=== PATIENT | female | born 1985 | race American Indian/Alaskan Native ===

== ENCOUNTER 2019-03-21 00:40 | Observation (INO) | payer MEDICAID ==
[2019-03-21] MEDS ORDERED: ASPIRIN 325 MG TAB PO ONE (00:46)
[2019-03-21 01:39] LABS: Basophils % (Auto) 0.7 % (0.0-1.8); Eosinophils # (Auto) 0.1 K/mm3 (0.0-0.4); Eosinophils % (Auto) 2.1 % (0.0-4.3); Hematocrit 35.7 % (30.3-42.9); Hemoglobin 12.7 gm/dl (10.1-14.3); Lymphocytes % (Auto) 44.3 % (13.4-35.0); Mean Corpuscular HGB Conc 36 % (30-34); Mean Corpuscular Volume 92 fl (79-97); Monocytes # (Auto) 0.5 K/mm3 (0.0-0.8); Monocytes % (Auto) 7.8 % (0.0-7.3); Platelet Count 375 K/mm3 (140-440); Red Blood Count 3.89 M/mm3 (3.65-5.03); Red Cell Distribution Width 12.6 % (13.2-15.2)
--- NOTE | 2019-03-21 01:44 | XRay Report ---
CHEST 1 VIEW INDICATION / CLINICAL INFORMATION: Chest Pain. COMPARISON: None available. FINDINGS: SUPPORT DEVICES: None. HEART / MEDIASTINUM: No significant abnormality. LUNGS / PLEURA: No significant pulmonary or pleural abnormality. No pneumothorax. ADDITIONAL FINDINGS: No significant additional findings. IMPRESSION: 1. No acute findings. Signer Name: Khalif Joaquin MD Signed: 03/21/2019 1:39 AM Workstation Name: [email or web address]
[2019-03-21 01:54] LABS: BUN/Creatinine Ratio 17; Blood Urea Nitrogen 10 mg/dL (7-17); Calcium 8.9 mg/dL (8.4-10.2); Hemolysis Index 14
--- NOTE | 2019-03-21 02:48 | Emergency Department Report ---
HPI - General Chief Complaint: High BP Time Seen by Provider: 03/21/19 02:35 - HPI HPI: Room 5 The patient is a 33-year-old female presenting with a chief complaint of hypertension and chest pain. The patient states her symptoms began 2 days ago with abdominal pain prompting her to go to [place] emergency department. There the patient had a CT scan of her abdomen and pelvis labs and urinalysis all of which were normal. The patient was found to be hypertensive at that time but no medications were given. The patient states since her discharge from the emergency department she continued to check her blood pressure remained elevated. This evening the patient felt her blood pressure be elevated at 183/113 so she took a lisinopril from an acquaintance. The patient states for the past 2 days she has had constant numbness of bilateral extremities and had an intermittent headache. Patient currently denies headache states today she developed intermittent substernal chest pain this been sharp in nature. Patient denies nausea/vomiting, shortness of breath or diaphoresis. Patient states she's never had a stress test or cardiac catheterization ED Past Medical Hx - Past Medical History Previous Medical History?: Yes Hx Hypertension: Yes (with preg) - Surgical History Past Surgical History?: No - Family History Family history: no significant - Social History Smoking Status: Never Smoker Substance Use Type: None (denies illicit drug use) ED Review of Systems ROS: Stated complaint: HIGH BP/HAND NUMBNESS Other details as noted in HPI Constitutional: denies: diaphoresis Eyes: denies: eye pain ENT: denies: throat pain Respiratory: denies: shortness of breath Cardiovascular: chest pain Endocrine: no symptoms reported Gastrointestinal: denies: nausea, vomiting Genitourinary: denies: dysuria Musculoskeletal: denies: back pain Neurological: headache, paresthesias Physical Exam - Physical Exam Vital Signs: Vital Signs 03/21/19 01:10 Temperature 97.9 F Pulse Rate 75 Respiratory 16 Rate Blood Pressure 189/118 [Right] O2 Sat by Pulse 100 Oximetry Physical Exam: GENERAL: The patient is well-developed well-nourished female lying on stretcher not appearing to be in acute distress. [] HEENT: Normocephalic. Atraumatic. Extraocular motions are intact. Patient has moist mucous membranes. NECK: Supple. No meningitic signs are noted. There is no adenopathy noted. CHEST/LUNGS: Clear to auscultation. There is no respiratory distress noted. HEART/CARDIOVASCULAR: Regular. There is no tachycardia. There is no gallop rub or murmur. ABDOMEN: Abdomen is soft, nontender. Patient has normal bowel sounds. There is no abdominal distention. SKIN: There is no rash. There is no edema. There is no diaphoresis. NEURO: The patient is awake, alert, and oriented. The patient is cooperative. The patient has no focal neurologic deficits. The patient has normal speech MUSCULOSKELETAL: There is no evidence of acute injury. ED Course Vital Signs 03/21/19 01:10 Temperature 97.9 F Pulse Rate 75 Respiratory 16 Rate Blood Pressure 189/118 [Right] O2 Sat by Pulse 100 Oximetry ED Medical Decision Making - Lab Data Result diagrams: 03/21/19 00:53 03/21/19 00:53 - EKG Data -: EKG Interpreted by Al EKG shows normal: sinus rhythm Rate: normal - EKG Data When compared to previous EKG there are: previous EKG unavailable Interpretation: nonspecific ST-T wave melvi (T-wave inversions in leads aVL, V2, V3,) - Radiology Data Radiology results: report reviewed (chest x-ray), image reviewed (chest x-ray) [facility] [address] [place] [address] XRay Report Signed Patient: SHONDA MCNAIR MR# : [id number] : 1985 Acct:[id number] Age/Sex: 33 / F ADM Date: 03/21/19 Loc: ED Attending Dr: Ordering Physician: ED MD MELANIE Date of Service: 03/21/19 Procedure(s): XR chest 1V ap Accession Number(s): [id number] cc: ED MD MELANIE Fluoro Time In Minutes: CHEST 1 VIEW INDICATION / CLINICAL INFORMATION: Chest Pain. COMPARISON: None available. FINDINGS: SUPPORT DEVICES: None. HEART / MEDIASTINUM: No significant abnormality. LUNGS / PLEURA: No significant pulmonary or pleural abnormality. No pneumothorax. ADDITIONAL FINDINGS: No significant additional findings. IMPRESSION: 1. No acute findings. Signer Name: Khalif Joaquin MD Signed: 03/21/2019 1:39 AM Workstation Name: [id number] Transcribed By: ANABEL Dictated By: Khalif Joaquin MD Electronically Authenticated By: Khalif Joaquin MD Signed Date/Time: 03/21/19138 DD/ 8 TD/TT: - Differential Diagnosis hypertensive urgency, ACS, pericarditis, GERD Critical care attestation.: If time is entered above; I have spent that time in minutes in the direct care of this critically ill patient, excluding procedure time. ED Disposition Clinical Impression: Hypertensive urgency, Chest pain Disposition: OP ADMIT IP TO THIS HOSP Is pt being admited?: Yes Does the pt Need Aspirin: Yes Condition: Fair Instructions: Chest Pain (ED) Time of Disposition: 02:51 (hospitalist paged (Dr. Denae Smith))
[2019-03-21] MEDS ORDERED: fentaNYL 100 MCG/2 ML INJ IV ONE (02:51)
[2019-03-21] MEDS ORDERED: cloNIDine 0.2 MG TAB PO ONE (02:51)
[2019-03-21] MEDS ORDERED: NITROGLYCERIN 2% OINT 1 GM TP ONE (02:51)
[2019-03-21] MEDS ORDERED: ONDANSETRON 4 MG/2 ML INJ IV ONE (02:51)
[2019-03-21] MEDS ORDERED: ONDANSETRON 4 MG/2 ML INJ IV PRN (03:48)
[2019-03-21] MEDS ORDERED: oxyCODONE /ACETAMINOPHEN 5-325MG TAB PO PRN (03:48)
[2019-03-21] MEDS ORDERED: ACETAMINOPHEN 325 MG TAB PO PRN (03:48)
--- NOTE | 2019-03-21 03:48 | History and Physical Report ---
History of Present Illness History of present illness: 33 year old woman with history of hypertensioncomes to the emergency room complaining about chest pain in the epigastric pain. She describes the pain as someone sitting on the chest, stent, intensity 5/10, no radiation, cannot identify exacerbating or relieving factors. Admits to nausea, no shortness of breath, diaphoresis or palpitation. Review of systems Constitutional: no weight loss, chills, fever Ears, eyes, nose, mouth and throat: no nasal congestion, no nasal discharge, no sinus pressure, no vision change, no red eye. Neck: No neck pain or rigidity. Cardiovascular: no palpitations Respiratory: no cough, shortness of breath Gastrointestinal: no abdominal pain hematochezia Genitourinary : no frequency , no hematuria Musculoskeletal: no joint swelling or muscle ache Integumentary: no rash, no pruritis Neurological: no parathesias, no numbness, no focal weakness Endocrine: no cold or heat intolerance, no polyuria or polydipsia Hematologic/Lymphatic: no easy bruising, no easy bleeding, no gland swelling Allergic/Immunologic: no urticaria, no angioedema. PAST MEDICAL HISTORY:hypertension PAST SURGICAL HISTORY: None SOCIAL HISTORY: Social alcohol, no tobacco, no drugs FAMILY HISTORY: hypertension Medications and Allergies Allergies Allergy/AdvReac Type Severity Reaction Status Date / Time Sulfa (Sulfonamide Allergy Hives Verified 03/21/19 00:45 Antibiotics) Exam - Physical Exam Narrative exam: General Apperance: The patient sitting in bed no acute distress HEENT: Normocephalic, atraumatic. Pupils equally round and reactive to light, extraocular movement intact, and no sclericterus or JVD or thyromegaly or nodule. Neck supple, no carotid bruit, mucous membranes moist, no exudate or erythema Heart: S1-S2, regular is rhythm Lungs: Clear to auscultation bilaterally, breathing comfortable Abdomen: Positive bowel sounds, soft, nontender, nondistended, no organomegaly Extremities: No edema cyanosis clubbing Skin: no rash, nodule, warm and dry Neuro:CN 2 -12 intact, motor/sensory intact, speech is fluent - Constitutional Vitals: Temp Pulse Resp BP Pulse Ox 97.9 F 57 L 13 175/100 98 03/21/19 01:10 03/21/19 03:23 03/21/19 03:23 03/21/19 03:23 03/21/19 03:23 Results - Labs CBC & Chem 7: 03/21/19 00:53 03/21/19 00:53 Labs: Abnormal lab results 03/21/19 03/21/19 Range/Units 00:53 00:53 MCH 33 H (28-32) pg MCHC 36 H (30-34) % RDW 12.6 L (13.2-15.2) % Lymph % (Auto) 44.3 H (13.4-35.0) % [place] % (Auto) 7.8 H (0.0-7.3) % Creatinine 0.6 L (0.7-1.2) mg/dL - Imaging and Cardiology EKG: image reviewed Chest x-ray: report reviewed Assessment and Plan Assessment Chest pain Hypertension malignant Plan Check cardiac enzymes, stress test Starrt Percocet, DVT prophylaxis
[2019-03-21] MEDS ORDERED: hydrALAZINE 20 MG/1 ML INJ IV PRN (03:50)
[2019-03-21] MEDS ORDERED: ENOXAPARIN 40 MG/0.4 ML INJ SUB-Q SCH (10:00)
[2019-03-21] MEDS ORDERED: ENOXAPARIN 30 MG/0.3 ML INJ SUB-Q SCH (10:00)
[2019-03-21] MEDS ORDERED: LISINOPRIL 10 MG TAB PO SCH (12:00)
--- NOTE | 2019-03-21 12:05 | Discharge Summary ---
Providers - Providers Date of Admission: 03/21/19 03:48 Date of discharge: 03/21/19 Attending physician: RADHA HILTON [facility] Reason for admission: 02/19/19 Condition: Fair Pertinent studies: CXR MPI stress test Hospital course: 33 year old woman with history of hypertension in came to the emergency room complaining about chest pain in the epigastric pain. She describes the pain as someone sitting on the chest, intensity 5/10, no radiation, cannot identify exacerbating or relieving factors, Admits to nausea, no shortness of breath, diaphoresis or palpitation. Patient was evaluated in the ER, initial cardiac enzyme and EKG was unremarkable, chest x-ray showed no infiltrates. Patient was admitted and underwent myocardial stress test which was normal. High blood pressure was monitored and placed on lisinopril. Patient was then discharged home in stable condition with outpatient follow-up. Discharge diagnosis: Atypical chest pain, likely from GERD - Placed on PPI will do further outpatient follow-up Uncontrolled HTN, stable on discharge, started on lisinopril Disposition: TO HOME OR SELFCARE Time spent for discharge: 34 minutes Core Measure Documentation - Palliative Care Palliative Care/ Comfort Measures: Not Applicable - Core Measures Any of the following diagnoses?: none Exam - Physical Exam Narrative exam: GENERAL: well-developed and well-nourished female lying on bed appeared to be in no discomfort. HEENT: Normocephalic. Atraumatic. No conjunctival congestion or icterus. Patient has moist mucous membranes. NECK: Supple. Trachea midline. CHEST/LUNGS: Clear to auscultated bilaterally, breathing nonlabored. No wheezes crackles or rhonchi. HEART/CARDIOVASCULAR: Regular in rate and rhythm. S1 and S2 positive. ABDOMEN: Abdomen is soft, nontender. Patient has normal bowel sounds. SKIN: There is no rash. Warm and dry. NEURO: No focal motor deficit. Follows command. MUSCULOSKELETAL: No joint effusion or tenderness. EXTRIMITY: No edema, no cyanosis or clubbing. PSYCH: Cooperative. - Constitutional Vitals: Temp Pulse Resp BP Pulse Ox 99.0 F 63 18 115/71 100 03/21/19 11:09 03/21/19 11:09 03/21/19 11:09 03/21/19 11:09 03/21/19 11:09 Plan Activity: advance as tolerated Weight Bearing Status: Weight Bear as Tolerated Diet: low fat, low salt Special Instructions: record daily BP diary Follow up with: MARY ANNE PABON MD [Primary Care Provider] - 7 Days SUZANNA FLEMING MD [Staff Physician] - 7 Days Prescriptions: Pantoprazole [Protonix] 40 mg PO QDAY #30 tablet Lisinopril [Zestril TAB] 10 mg PO QDAY #60 tablet
[2019-03-21 15:50] VITALS: BP 127/78
--- NOTE | 2019-03-21 21:50 | Treadmill Report ---
REASON FOR TEST: Chest pain. An 8 minutes of Robert protocol, reaching stage 3 and achieving 9 mets. Peak heart rate was 140 beats per minute. Peak blood pressure was 133 systolic. There was no chest pain. Test was stopped for fatigue. Baseline ECG was sinus rhythm. With exercise, there were no ST changes of ischemia. No significant dysrhythmias were noted. CONCLUSION: 1. Above average exercise capacity. 2. No chest pain. 3. No ST changes of ischemia. 4. No significant dysrhythmias. This is a normal exercise ECG test. JOB# [id number] CA/NTS
== END 2019-03-21 16:40 | disposition home or self-care (01) ==
LOC: ED 00:40 → 4A 03:48 → INTOOBSV 03:48
PROVIDERS: ADMIT Internal Medicine; ATTEND Internal Medicine
DX: R07.89 Other chest pain (principal); I16.0 Hypertensive urgency
CPT/HCPCS: 36415; 71045; 80048; 84484; 84703; 85025; 93005; 93010; 93017; 99285; G0378; J1650; J2405; J3010; 96372; 96374; 96375

== ENCOUNTER 2019-08-11 14:39 | Emergency (ER) | payer MEDICAID ==
[2019-08-11 15:21] VITALS: BP 146/97
[2019-08-11 15:41] LABS: Basophils % (Auto) 0.7 % (0.0-1.8); Eosinophils # (Auto) 0.1 K/mm3 (0.0-0.4); Eosinophils % (Auto) 1.6 % (0.0-4.3); Hematocrit 32.7 % (30.3-42.9); Hemoglobin 10.8 gm/dl (10.1-14.3); Lymphocytes # (Auto) 1.8 K/mm3 (1.2-5.4); Mean Corpuscular HGB Conc 33 % (30-34); Mean Corpuscular Volume 90 fl (79-97); Monocytes # (Auto) 0.5 K/mm3 (0.0-0.8); Monocytes % (Auto) 9.5 % (0.0-7.3); Platelet Count 375 K/mm3 (140-440); Red Blood Count 3.63 M/mm3 (3.65-5.03); Red Cell Distribution Width 13.4 % (13.2-15.2)
--- NOTE | 2019-08-11 15:50 | Emergency Department Report ---
Blank Doc - Documentation Documentation: 33-year-old female that presents with vaginal bleeding and pelvic cramping. S tated had a positive test x2. This initial assessment/diagnostic orders/clinical plan/treatment(s) is/are subject to change based on patient's health status, clinical progression and re-assessment by fellow clinical providers in the ED. Further treatment and workup at subsequent clinical providers discretion. Patient/guardians urged not to elope from the ED as their condition may be serious if not clinically assessed and managed. Initial orders include: 1- Patient sent to [facility] for further evaluation and treatment 2- US 3- labs
--- NOTE | 2019-08-11 17:15 | Ultrasound Report ---
OB Ultrasound HISTORY: pelvic pain and vaginal bleeding. TECHNIQUE: Grayscale and color imaging performed. COMPARISON: None FINDINGS: Transabdominal and endovaginal imaging was performed. The uterus measures 11.0 x 6.0 x 5.7 cm with endometrial echocomplex measuring 1.8 cm. There is a 2 m m cystic structure in the uterine body which could represent an early gestational sac. No cardi ac activity or pole identified. The ovaries both appear normal with small follicles and preserved blood flow. No pelvic free fluid id entified. IMPRESSION: Tiny cystic intrauterine structure as above could represent an early gestational sac. Cor relate with beta hCG level and if indicated follow-up pelvic ultrasound. Otherwise unremarkable exam. Signer Name: Arnulfo Curry MD Signed: 08/11/2019 5:11 PM Workstation Name: [id number]
[2019-08-11 17:22] LABS: Bilirubin,Urine NEG (Negative); Blood,Urine NEG (Negative); Color,Urine Straw (Yellow); Protein,Urine <15 mg/dL mg/dL (Negative); Urobilinogen,Urine < 2.0 mg/dL (<2.0)
[2019-08-11 17:23] LABS: WBC,Urine < 1.0 /HPF (0.0-6.0)
--- NOTE | 2019-08-11 19:17 | Emergency Department Report ---
ED HPI - General Chief complaint: Abdominal Pain Stated complaint: DIZZY,WEAKNESS,CRAMPING,HEADAHCES Time Seen by Provider: 08/11/19 15:19 Source: patient Mode of arrival: Ambulatory Limitations: No Limitations - History of Present Illness Initial comments: Ms. Diaz is a 33 y/o aaf LMP 07/19/2019 who presents for abd cramping x 1 week with breast fullness, she denies vaginal bleeding , no n/v, fever or chills. states she believes she is . She had 2 postive home test. She had and elective in Jun 2019 , completed 6 week follow up and cleared by obgyn. She has OBGYN appt in 3 days. MD Complaint: abdominal pain Onset/Timin -: week(s) Radiation: LLQ, RLQ Severity: mild Severity scale (0 -10): 2 Quality: cramping Consistency: intermittent Improves with: none Worsens with: none Associated symptoms: abdominal pain (cramping ). denies: vaginal bleeding, vaginal discharge, dysuria, headache Vaginal bleeding: none :: No OB History - Previous Pregnancies: no complications Last menstrual period: 07/19/19 - Related Data : 5 Para: 4 Ab: 1 Previous Rx's Medication Instructions Recorded Last Taken Type Pantoprazole [Protonix] 40 mg PO QDAY #30 tablet 03/21/19 Unknown Rx lisinopriL [Zestril TAB] 10 mg PO QDAY #60 tablet 03/21/19 Unknown Rx Acetaminophen [Acetaminophen TAB] 650 mg PO Q6HR PRN #30 tablet 08/11/19 Unknown Rx Allergies Allergy/AdvReac Type Severity Reaction Status Date / Time Sulfa (Sulfonamide Allergy Hives Verified 08/11/19 14:41 Antibiotics) ED Review of Systems ROS: Stated complaint: DIZZY,WEAKNESS,CRAMPING,HEADAHCES Other details as noted in HPI Constitutional: denies: chills, fever Eyes: denies: eye pain, eye discharge, vision change ENT: denies: ear pain, throat pain Respiratory: denies: cough, shortness of breath, wheezing Cardiovascular: denies: chest pain, palpitations Endocrine: no symptoms reported Gastrointestinal: abdominal pain (cramping ). denies: nausea, vomiting, diarrhea Genitourinary: denies: urgency, dysuria, frequency, hematuria, discharge Musculoskeletal: denies: back pain, joint swelling, arthralgia Skin: denies: rash, lesions Neurological: denies: headache, weakness, paresthesias Psychiatric: denies: anxiety, depression Hematological/Lymphatic: denies: easy bleeding, easy bruising ED Past Medical Hx - Past Medical History Hx Hypertension: Yes (with preg) Hx Congestive Heart Failure: No Hx Diabetes: No Hx Asthma: No Hx COPD: No - Surgical History Additional Surgical History: - Social History Smoking Status: Never Smoker Substance Use Type: None - Medications Home Medications: Home Medications Medication Instructions Recorded Confirmed Last Taken Type Pantoprazole [Protonix] 40 mg PO QDAY #30 tablet 03/21/19 Unknown Rx lisinopriL [Zestril TAB] 10 mg PO QDAY #60 tablet 03/21/19 Unknown Rx Acetaminophen [Acetaminophen TAB] 650 mg PO Q6HR PRN #30 tablet 08/11/19 Unknown Rx ED Physical Exam - General Limitations: No Limitations General appearance: alert, in no apparent distress - Head Head exam: Present: normocephalic, normal inspection - Eye Eye exam: Present: normal appearance, PERRL, EOMI Pupils: Present: normal accommodation - ENT ENT exam: Present: mucous membranes moist - Neck Neck exam: Present: normal inspection - Respiratory Respiratory exam: Present: normal lung sounds bilaterally. Absent: respiratory distress - Cardiovascular Cardiovascular Exam: Present: regular rate, normal rhythm, normal heart sounds - GI/Abdominal GI/Abdominal exam: Present: soft, normal bowel sounds. Absent: distended, tenderness, guarding, rebound, rigid, bruit, hernia - Rectal Rectal exam: Present: deferred - Extremities Exam Extremities exam: Present: normal inspection, full ROM, normal capillary refill - Back Exam Back exam: Present: normal inspection, full ROM. Absent: tenderness, CVA tenderness (R), CVA tenderness (L) - Neurological Exam Neurological exam: Present: alert, oriented X3, CN II-XII intact, normal gait - Psychiatric Psychiatric exam: Present: normal affect, normal mood - Skin Skin exam: Present: warm, dry, intact, normal color. Absent: rash ED Course Vital Signs 08/11/19 15:15 Temperature 98.8 F Pulse Rate 76 Respiratory 18 Rate Blood Pressure 146/97 O2 Sat by Pulse 100 Oximetry ED Medical Decision Making - Lab Data Result diagrams: 08/11/19 15:30 Lab Results 08/11/19 08/11/19 08/11/19 Range/Units 15:30 15:30 17:03 WBC 5.1 (4.5-11.0) K/mm3 RBC 3.63 L (3.65-5.03) M/mm3 Hgb 10.8 (10.1-14.3) gm/dl Hct 32.7 (30.3-42.9) % MCV 90 (79-97) fl MCH 30 (28-32) pg MCHC 33 (30-34) % RDW 13.4 (13.2-15.2) % Plt Count 375 (140-440) K/mm3 Lymph % (Auto) 36.0 H (13.4-35.0) % [place] % (Auto) 9.5 H (0.0-7.3) % Eos % (Auto) 1.6 (0.0-4.3) % Baso % (Auto) 0.7 (0.0-1.8) % Lymph # 1.8 (1.2-5.4) K/mm3 [place] # 0.5 (0.0-0.8) K/mm3 Eos # 0.1 (0.0-0.4) K/mm3 Baso # 0.0 (0.0-0.1) K/mm3 Seg Neutrophils % 52.2 (40.0-70.0) % Seg Neutrophils # 2.7 (1.8-7.7) K/mm3 HCG, Quant 4.47 H (0-4) mIU/mL Urine Color Straw (Yellow) Urine Turbidity Clear (Clear) Urine pH 6.0 (5.0-7.0) Ur Specific [place] 1.006 (1.003-1.030) Urine Protein <15 mg/dl (Negative) mg/dL Urine Glucose (UA) Neg (Negative) mg/dL Urine Ketones Neg (Negative) mg/dL Urine Blood Neg (Negative) Urine Nitrite Neg (Negative) Urine Bilirubin Neg (Negative) Urine Urobilinogen < 2.0 (<2.0) mg/dL Ur Leukocyte Esterase Neg (Negative) Urine WBC (Auto) < 1.0 (0.0-6.0) /HPF Urine RBC (Auto) 1.0 (0.0-6.0) /HPF U Epithel Cells (Auto) 1.0 (0-13.0) /HPF Blood Type 08/11/19 Range/Units Unknown WBC (4.5-11.0) K/mm3 RBC (3.65-5.03) M/mm3 Hgb (10.1-14.3) gm/dl Hct (30.3-42.9) % MCV (79-97) fl MCH (28-32) pg MCHC (30-34) % RDW (13.2-15.2) % Plt Count (140-440) K/mm3 Lymph % (Auto) (13.4-35.0) % [place] % (Auto) (0.0-7.3) % Eos % (Auto) (0.0-4.3) % Baso % (Auto) (0.0-1.8) % Lymph # (1.2-5.4) K/mm3 [place] # (0.0-0.8) K/mm3 Eos # (0.0-0.4) K/mm3 Baso # (0.0-0.1) K/mm3 Seg Neutrophils % (40.0-70.0) % Seg Neutrophils # (1.8-7.7) K/mm3 HCG, Quant (0-4) mIU/mL Urine Color (Yellow) Urine Turbidity (Clear) Urine pH (5.0-7.0) Ur Specific [place] (1.003-1.030) Urine Protein (Negative) mg/dL Urine Glucose (UA) (Negative) mg/dL Urine Ketones (Negative) mg/dL Urine Blood (Negative) Urine Nitrite (Negative) Urine Bilirubin (Negative) Urine Urobilinogen (<2.0) mg/dL Ur Leukocyte Esterase (Negative) Urine WBC (Auto) (0.0-6.0) /HPF Urine RBC (Auto) (0.0-6.0) /HPF U Epithel Cells (Auto) (0-13.0) /HPF Blood Type O POSITIVE - Radiology Data Radiology results: report reviewed, image reviewed Findings Reporting MD: Arnulfo Curry Dictation Time: August 11, 2019 16:11 Label Pinker: Not available Lehr Tender Date: OB Ultrasound HISTORY: pelvic pain and vaginal bleeding. TECHNIQUE: Grayscale and color imaging performed. COMPARISON: None FINDINGS: Transabdominal and endovaginal imaging was performed. The uterus measures 11.0 x 6.0 x 5.7 cm with endometrial echocomplex measuring 1.8 cm. There is a 2 mm cystic structure in the uterine body which could represent an early gestational sac. No cardiac activity or pole identified. The ovaries both appear normal with small follicles and preserved blood flow. No pelvic free fluid identified. IMPRESSION: Tiny cystic intrauterine structure as above could represent an early gestational sac. Correlate with beta hCG level and if indicated follow-up pelvic ultrasound. Otherwise unremarkable exam. Signer Name: Arnulfo Curry MD Signed: 08/11/2019 4:11 PM Workstation Name: [id number] - Medical Decision Making US: ? early gestational sac, versus cyst, all labs normal, no vaginal bleeding , pt will follow up with OBGYN in 2 days, for repeat hcg and possible US, return to ED if symptoms worsen. pt dc'd to home in stable condition. Critical care attestation.: If time is entered above; I have spent that time in minutes in the direct care of this critically ill patient, excluding procedure time. ED Disposition Clinical Impression: Qualifiers: Weeks of gestation: less than 8 weeks Qualified Code(s): Z3A.01 - Less than 8 weeks gestation of Disposition: DC-01 TO HOME OR SELFCARE Is pt being admited?: No Does the pt Need Aspirin: No Condition: Stable Instructions: Abdominal Pain (ED), (ED) Prescriptions: Acetaminophen [Acetaminophen TAB] 650 mg PO Q6HR PRN #30 tablet PRN Reason: Pain Referrals: LARRY GARIBAY MD [Primary Care Provider] - 3-5 Days [facility] [Provider Group] - 3-5 Days Forms: Work/School Release Form(ED)
== END 2019-08-11 19:27 | disposition home or self-care (01) ==
LOC: ED 14:39
DX: O26.891 Other specified pregnancy related conditions, first trimester (principal); R42 Dizziness and giddiness; R53.1 Weakness; R25.2 Cramp and spasm; R51 Headache; Z88.2 Allergy status to sulfonamides; Z79.899 Other long term (current) drug therapy; Z3A.01 Less than 8 weeks gestation of pregnancy
CPT/HCPCS: 36415; 76801; 76817; 81001; 84702; 85025; 86900; 86901; 99284